=== PATIENT | male | born 1990 | race African-American/Black ===

== ENCOUNTER 2018-12-07 06:22 | Emergency (ER) | payer MEDICAID ==
[~2018-12-07] VITALS: Ht 193 cm; Wt 172.0 kg
[~2018-12-07 06:22] MED LIST: COR25 PO; CYCL5TAB PO; DIVA500T51 PO; HYDR-523 PO; Lisinopril PO
[2018-12-07] MEDS ORDERED: ONDANSETRON HCL 4MG/2ML INJ IV STA (07:55)
[2018-12-07] MEDS ORDERED: MORPHINE SULFATE 4 MG/ML CPJ (NOT FOR IM USE) IV STA (07:55)
[2018-12-07] MEDS ORDERED: SODIUM CHLORIDE 0.9% 1,000 ML IV ONE ×2 (07:55→15:15)
[2018-12-07 08:17] LABS: BASOPHILS % 0.6 % (0.0-2.0); EOSINOPHILS % 0.8 % (0.0-5.0); HEMATOCRIT. 44.2 % (42.0-52.0); HEMOGLOBIN. 14.5 g/dL (14.0-18.0); LYMPHOCYTES % 26.6 % (20.0-50.0); MEAN CORPUSCULAR HEMOGLOBIN 28.4 pg (28.0-32.0); MEAN CORPUSCULAR VOLUME 86.4 fL (80.0-94.0); MEAN PLATELET VOLUME 11.6 fl (7.4-10.4); MONOCYTES % 8.6 % (2.0-8.0); NEUTROPHILS % 63.4 % (40.0-76.0); PLATELET 170 x1000/uL (130-400); RED BLOOD CELL COUNT 5.12 mill/uL (4.7-6.1)
[2018-12-07 08:19] LABS: CHLORIDE 96 mEq/L (98-107)
[2018-12-07 08:22] LABS: INR 1.1; PROTHROMBIN TIME 10.9 sec (9.1-11.1)
[2018-12-07 10:31] LABS: CLARITY URINE CLEAR (CLEAR); COLOR URINE YELLOW (YELLOW); KETONES URINE 1+ (NEGATIVE); LEUKOCYTE ESTERASE URINE NEGATIVE (NEGATIVE); NITRITE URINE NEGATIVE (NEGATIVE); OCCULT BLOOD URINE NEGATIVE (NEGATIVE); PH URINE 5.5 (4.5-8.0); PROTEIN URINE 1+ (NEGATIVE); SPECIFIC GRAVITY URINE 1.042 (1.005-1.030); UROBILINOGEN URINE 0.2 E.U./dL (0.2-1.0)
[2018-12-07] MEDS ORDERED: IOHEXOL-300 100 ML BOTTLE ONE (11:00)
[2018-12-07 17:30] VITALS: BP 144/79
== END 2018-12-07 19:49 | disposition home or self-care (01) ==
LOC: ER 06:22
DX: E11.65 Type 2 diabetes mellitus with hyperglycemia (principal); K46.9 Unspecified abdominal hernia without obstruction or gangrene; F12.10 Cannabis abuse, uncomplicated; I10 Essential (primary) hypertension; Z98.890 Other specified postprocedural states; Z79.899 Other long term (current) drug therapy
CPT/HCPCS: 36415; 74177; 80053; 81003; 82010; 82962; 83690; 85025; 85610; 96361; 96374; 96375; 99284; J2270; J2405; J7030; Q9967

== ENCOUNTER 2020-06-04 10:24 | Emergency (ER) | payer MEDICAID ==
[~2020-06-04] VITALS: Ht 182.9 cm; Wt 113.0 kg
[2020-06-04] MEDS ORDERED: SODIUM CHLORIDE 0.9% 1,000 ML IV ONE (11:22)
[2020-06-04] MEDS ORDERED: CLONIDINE 0.2MG TABLET PO ONE (11:30)
[2020-06-04 11:49] LABS: BASOPHILS % 0.9 % (0.0-2.0); EOSINOPHILS % 0.8 % (0.0-5.0); HEMATOCRIT. 44.3 % (42.0-52.0); LYMPHOCYTES % 24.1 % (20.0-50.0); MEAN CORPUSCULAR HEMOGLOBIN 29.2 pg (28.0-32.0); MEAN CORPUSCULAR VOLUME 86.3 fL (80.0-94.0); MEAN PLATELET VOLUME 11.5 fl (7.4-10.4); MONOCYTES % 8.4 % (2.0-8.0); NEUTROPHILS % 65.8 % (40.0-76.0); PLATELET 148 x1000/uL (130-400); RED BLOOD CELL COUNT 5.13 mill/uL (4.7-6.1); RED CELL DISTRIBUTION WIDTH 13.4 % (11.6-14.6)
[2020-06-04 11:51] LABS: CHLORIDE 97 mEq/L (98-107)
[2020-06-04 11:55] LABS: ETHANOL BLOOD < 10 mg/dL; INR 1.1; PARTIAL THROMBOPLASTIN TIME 31.6 sec (23.4-31.0); PROTHROMBIN TIME 11.9 sec (9.6-11.0)
[2020-06-04 12:05] LABS: VALPROIC ACID < 3.0 ug/mL (50-100)
[2020-06-04] MEDS ORDERED: DIVALPROEX SODIUM 250MG ER TABLET PO ONE (12:45)
[2020-06-04] MEDS ORDERED: DIVALPROEX SODIUM 500MG ER TABLET PO NR (13:00)
[2020-06-04 13:23] LABS: *AMPHETAMINES SCREEN URINE NEGATIVE (NEGATIVE); *BARBITURATES SCREEN URINE NEGATIVE (NEGATIVE); *BENZODIAZEPINES SCREEN URINE NEGATIVE (NEGATIVE); *COCAINE SCREEN URINE NEGATIVE (NEGATIVE); OPIATES URINE SCREEN NEGATIVE (NEGATIVE)
[2020-06-04 13:25] LABS: CANNABINOID URINE SCREEN NEGATIVE (NEGATIVE); METHADONE URINE SCREEN NEGATIVE (NEGATIVE); PHENCYCLIDINE URINE SCREEN NEGATIVE (NEGATIVE)
[2020-06-04 18:00] VITALS: BP 149/72
== END 2020-06-04 18:51 | disposition home or self-care (01) ==
LOC: ER 10:24
DX: R04.0 Epistaxis (principal); I10 Essential (primary) hypertension; G40.909 Epilepsy, unspecified, not intractable, without status epilepticus; F12.10 Cannabis abuse, uncomplicated
CPT/HCPCS: 36415; 80053; 80165; 80305; 80320; 85025; 85610; 85730; 93005; 99285; J7030; G0480

== ENCOUNTER 2020-07-02 10:43 | Inpatient (IN) | payer MEDICAID ==
[~2020-07-02] VITALS: Ht 193 cm; Wt 179.7 kg
[2020-07-02 11:21] LABS: EOSINOPHILS % 0.3 % (0.0-5.0); HEMATOCRIT. 42.4 % (42.0-52.0); HEMOGLOBIN. 14.2 g/dL (14.0-18.0); LYMPHOCYTES % 28.3 % (20.0-50.0); MEAN CORPUSCULAR HEMOGLOBIN 28.8 pg (28.0-32.0); MEAN CORPUSCULAR VOLUME 86.4 fL (80.0-94.0); MEAN PLATELET VOLUME 10.9 fl (7.4-10.4); MONOCYTES % 6.4 % (2.0-8.0); PLATELET 131 x1000/uL (130-400); RED BLOOD CELL COUNT 4.91 mill/uL (4.7-6.1); RED CELL DISTRIBUTION WIDTH 13.6 % (11.6-14.6)
[2020-07-02 11:27] LABS: CHLORIDE 103 mEq/L (98-107)
[2020-07-02 18:15] VITALS: BP 149/53
[2020-07-02 18:18] VITALS: BP 149/55
[2020-07-02] MEDS ORDERED: ACETAMINOPHEN 325MG TABLET PO PRN (18:30)
[2020-07-02] MEDS ORDERED: DIPHENHYDRAMINE 50MG/ML VIAL IV PRN (18:30)
[2020-07-02] MEDS ORDERED: MORPHINE SULFATE 2 MG/ML CPJ (NOT FOR IM USE) IV PRN (18:30)
[2020-07-02] MEDS ORDERED: CLONIDINE 0.1MG TABLET PO PRN (18:30)
[2020-07-02] MEDS ORDERED: IPRATROPIUM/ALBUTEROL 0.5-3(2.5)MG/3ML NEB HHN PRN (18:30)
[2020-07-02] MEDS ORDERED: ONDANSETRON HCL 4MG/2ML INJ IV PRN (18:30)
[2020-07-02] MEDS: FUROSEMIDE 40MG/4ML VIAL IV SCH (18:56)
[2020-07-02] MEDS ORDERED: DEXTROSE 50% WATER 50ML SYRINGE IV PRN (19:15)
[2020-07-02 20:07] VITALS: BP 148/86
[2020-07-02 20:30] LABS: PHOSPHORUS 3.5 mg/dL (2.5-4.9)
[2020-07-02] MEDS: BLOOD SUGAR DIAGNOSTIC STRIP TEST SCH (21:00)
[2020-07-02] MEDS: ENOXAPARIN 40MG/0.4ML SYR SUBCUT SCH (21:02)
[2020-07-02] MEDS: INSULIN LISPRO 100 UNITS/ML SUBCUT SCH (21:08)
[2020-07-02 22:07] VITALS: BP 131/80
[2020-07-03] VITALS (11 sets, daily range): BP systolic 118–150; BP diastolic 48–87
[2020-07-03 06:22] LABS: BASOPHILS % 0.4 % (0.0-2.0); EOSINOPHILS % 0.7 % (0.0-5.0); HEMATOCRIT. 43.5 % (42.0-52.0); HEMOGLOBIN. 14.5 g/dL (14.0-18.0); MEAN CORPUSCULAR HEMOGLOBIN 28.8 pg (28.0-32.0); MEAN CORPUSCULAR VOLUME 86.6 fL (80.0-94.0); MEAN PLATELET VOLUME 11.2 fl (7.4-10.4); MONOCYTES % 5.9 % (2.0-8.0); PLATELET 138 x1000/uL (130-400); RED BLOOD CELL COUNT 5.02 mill/uL (4.7-6.1); RED CELL DISTRIBUTION WIDTH 13.6 % (11.6-14.6)
[2020-07-03] MEDS: INSULIN LISPRO 100 UNITS/ML SUBCUT SCH ×4 (06:22→20:33)
[2020-07-03] MEDS: BLOOD SUGAR DIAGNOSTIC STRIP TEST SCH ×4 (06:22→20:26)
[2020-07-03 06:31] LABS: CHLORIDE 103 mEq/L (98-107)
[2020-07-03 06:43] LABS: LDL CHOLESTEROL 61 mg/dL (5-100)
[2020-07-03 06:44] LABS: HDL CHOLESTEROL 19 mg/dL (40-59)
[2020-07-03] MEDS ORDERED: CYCLOBENZAPRINE 10MG TABLET PO PRN (11:15)
[2020-07-03] MEDS: FUROSEMIDE 40MG/4ML VIAL IV SCH (11:16)
[2020-07-03] MEDS: ENOXAPARIN 40MG/0.4ML SYR SUBCUT SCH ×2 (11:17→20:32)
[2020-07-03] MEDS ORDERED: LORAZEPAM 2MG/ML CPJ IV PRN (11:30)
[2020-07-03] MEDS: POTASSIUM CHLORIDE 20MEQ TABLET SR PO SCH (12:46)
[2020-07-03] MEDS: DIVALPROEX SODIUM 500MG ER TABLET PO SCH (18:30)
[2020-07-03] MEDS: CARVEDILOL 12.5MG TABLET PO SCH (20:33)
[2020-07-04] VITALS (8 sets, daily range): BP systolic 121–136; BP diastolic 61–90
[2020-07-04] MEDS: BLOOD SUGAR DIAGNOSTIC STRIP TEST SCH ×2 (06:11→11:50)
[2020-07-04 07:52] LABS: CHLORIDE 103 mEq/L (98-107)
[2020-07-04] MEDS: POTASSIUM CHLORIDE 20MEQ TABLET SR PO SCH (08:41)
[2020-07-04] MEDS: FUROSEMIDE 40MG/4ML VIAL IV SCH (08:41)
[2020-07-04] MEDS: ENOXAPARIN 40MG/0.4ML SYR SUBCUT SCH (08:41)
[2020-07-04 08:42] LABS: BASOPHILS % 0.4 % (0.0-2.0); HEMATOCRIT. 41.9 % (42.0-52.0); HEMOGLOBIN. 13.8 g/dL (14.0-18.0); LYMPHOCYTES % 36.4 % (20.0-50.0); MEAN CORPUSCULAR HEMOGLOBIN 28.5 pg (28.0-32.0); MEAN CORPUSCULAR VOLUME 86.3 fL (80.0-94.0); MEAN PLATELET VOLUME 10.5 fl (7.4-10.4); NEUTROPHILS % 54.2 % (40.0-76.0); PLATELET 140 x1000/uL (130-400); RED BLOOD CELL COUNT 4.85 mill/uL (4.7-6.1); RED CELL DISTRIBUTION WIDTH 13.5 % (11.6-14.6)
[2020-07-04] MEDS: CARVEDILOL 12.5MG TABLET PO SCH (08:44)
[2020-07-04] MEDS: DIVALPROEX SODIUM 500MG ER TABLET PO SCH (08:44)
[2020-07-04] MEDS: INSULIN LISPRO 100 UNITS/ML SUBCUT SCH ×2 (08:47→12:20)
[2020-07-04] MEDS ORDERED: LISINOPRIL 5MG TABLET PO SCH (09:00)
== END 2020-07-04 14:25 | disposition home or self-care (01) | DRG 145 ==
LOC: ER 10:43 → 3WST 14:22 → ENRESERV 17:11
PROVIDERS: ADMIT Internal Medicine; ATTEND Internal Medicine
DX: R07.81 Pleurodynia (principal); I10 Essential (primary) hypertension; E66.01 Morbid (severe) obesity due to excess calories; E11.65 Type 2 diabetes mellitus with hyperglycemia; G40.909 Epilepsy, unspecified, not intractable, without status epilepticus; Z82.49 Family history of ischemic heart disease and other diseases of the circulatory system; Z83.3 Family history of diabetes mellitus; Z68.42 Body mass index [BMI] 45.0-49.9, adult; Z79.899 Other long term (current) drug therapy
CPT/HCPCS: 36415; 71045; 80048; 80053; 80061; 82962; 83036; 83735; 83880; 84100; 84443; 84484; 85025; 85379; 93005; 93306; 93970; 97161; 99285; J1650; J1815; J1940